=== PATIENT | female | born 1945 | race Caucasian/White ===

== ENCOUNTER 2020-05-10 16:52 | Inpatient (IN) | payer MEDICARE, OTHER ==
[~2020-05-10] VITALS: Ht 157.5 cm; Wt 75.9 kg
[2020-05-10 18:00] LABS: HEMOGLOBIN 7.5 gm/dl (12.3-15.3); RED BLOOD COUNT 2.51 M/UL (4.00-5.10); WHITE BLOOD COUNT 9.1 K/UL (4.5-11.0)
[2020-05-10] MEDS ORDERED: HYDRALAZINE HCL50 MG PO (22:45)
[2020-05-10] MEDS ORDERED: COZAAR 50MG TAB50 MG PO (22:46)
[2020-05-10] MEDS ORDERED: XARELTO20 MG PO (22:46)
[2020-05-10] MEDS ORDERED: LEVOTHYROXINE50 MC1 PO (22:49)
[2020-05-10] MEDS ORDERED: CLARITIN10 M2 PO (22:49)
[2020-05-10] MEDS ORDERED: SINGULAIR10 MG PO (22:49)
[2020-05-10] MEDS ORDERED: DULERA 100 MCG8.8 GM INH (22:50)
[2020-05-10] MEDS ORDERED: VENTOLIN HFA 66.7 GM INH (22:50)
[2020-05-10] MEDS ORDERED: OSTEO BI-FLEX1 EAC1 PO (22:51)
[2020-05-10] MEDS ORDERED: TYLENOL 500 MG500 MG PO (22:52)
[2020-05-10] MEDS ORDERED: VITAMIN C1000 MG PO (22:53)
[2020-05-10] MEDS ORDERED: VITAMIN D350 MCG PO (22:55)
[2020-05-10] MEDS ORDERED: BIOTIN PO (22:55)
[2020-05-10] MEDS ORDERED: ZINC50 M2 PO (22:56)
[2020-05-10] MEDS ORDERED: VITAMIN B-121000 MCG PO (22:56)
[2020-05-10] MEDS ORDERED: WAL-SOM50 MG PO (22:57)
[2020-05-11 15:03] LABS: HEMOGLOBIN 6.5 gm/dl (12.3-15.3); RED BLOOD COUNT 2.22 M/UL (4.00-5.10)
[2020-05-11] MEDS ORDERED: NIGHTTIME SLEEP25 M1 PO (20:46)
[2020-05-12 06:30] LABS: WHITE BLOOD COUNT 7.2 K/UL (4.5-11.0)
[2020-05-12 06:41] LABS: HEMOGLOBIN 8.9 gm/dl (12.3-15.3); RED BLOOD COUNT 2.97 M/UL (4.00-5.10)
[2020-05-13 04:02] LABS: HEMOGLOBIN 7.7 gm/dl (12.3-15.3)
[2020-05-13 04:03] LABS: RED BLOOD COUNT 2.56 M/UL (4.00-5.10); WHITE BLOOD COUNT 10.2 K/UL (4.5-11.0)
[2020-05-13 07:11] LABS: HBSAG SCREEN Negative (Negative); HCV AB 0.1 (0.0-0.9)
[2020-05-13 08:14] LABS: ANTISTREPTOLYSIN O AB <20.0 IU/mL (0.0-200.0); COMPLEMENT C3, SERUM 99 mg/dL (82-167); COMPLEMENT C4, SERUM 13 mg/dL (12-38)
[2020-05-13 10:14] LABS: CREATININE, URINE 35.5 mg/dL (Not Estab.)
[2020-05-13 10:14] LABS: CREATININE, URINE 77.9 mg/dL (Not Estab.)
[2020-05-13 12:01] LABS: HEMOGLOBIN 7.7 gm/dl (12.3-15.3)
[2020-05-13 12:14] LABS: ANTI-DSDNA ANTIBODIES 15 IU/mL (0-9)
[2020-05-13 16:12] LABS: ALBUMIN 2.7 g/dL (2.9-4.4); ALPHA-1-GLOBULIN 0.3 g/dL (0.0-0.4); ALPHA-2-GLOBULIN 0.9 g/dL (0.4-1.0); BETA GLOBULIN 0.9 g/dL (0.7-1.3); GAMMA GLOBULIN 0.9 g/dL (0.4-1.8); GLOBULIN, TOTAL 2.9 g/dL (2.2-3.9); IMMUNOGLOBULIN A, QN, SERUM 152 mg/dL (64-422); IMMUNOGLOBULIN G, QN, SERUM 955 mg/dL (586-1602); IMMUNOGLOBULIN M, QN, SERUM 160 mg/dL (26-217); M-SPIKE Not Observed g/dL (Not Observed); PROTEIN, TOTAL, SERUM 5.6 g/dL (6.0-8.5)
[2020-05-14 05:46] LABS: HEMOGLOBIN 8.2 gm/dl (12.3-15.3); RED BLOOD COUNT 2.72 M/UL (4.00-5.10)
[2020-05-14 05:48] LABS: WHITE BLOOD COUNT 14.9 K/UL (4.5-11.0)
[2020-05-15 04:48] LABS: HEMOGLOBIN 7.2 gm/dl (12.3-15.3)
[2020-05-15 04:55] LABS: RED BLOOD COUNT 2.37 M/UL (4.00-5.10); WHITE BLOOD COUNT 10.9 K/UL (4.5-11.0)
[2020-05-15 16:05] LABS: HEMOGLOBIN 8.2 gm/dl (12.3-15.3)
[2020-05-16 03:02] LABS: HEMOGLOBIN 7.7 gm/dl (12.3-15.3); RED BLOOD COUNT 2.55 M/UL (4.00-5.10); WHITE BLOOD COUNT 10.5 K/UL (4.5-11.0)
[2020-05-16 10:10] LABS: ANTIGLOMERULAR BM AB 4 units (0-20)
[2020-05-16 16:11] LABS: ANTIPROTEINASE 3 (PR-3) ABS 4.2 U/mL (0.0-3.5); ATYPICAL PANCA <1:20 titer (Neg:<1:20); CYTOPLASMIC (C-ANCA) >1:640 titer (Neg:<1:20); PERINUCLEAR (P-ANCA) >1:640 titer (Neg:<1:20)
[2020-05-17 05:04] LABS: HEMOGLOBIN 7.4 gm/dl (12.3-15.3); RED BLOOD COUNT 2.44 M/UL (4.00-5.10); WHITE BLOOD COUNT 10.4 K/UL (4.5-11.0)
[2020-05-17 13:15] LABS: ANTIHISTONE ANTIBODIES 6.7 Units (0.0-0.9)
[2020-05-18 04:27] LABS: HEMOGLOBIN 8.1 gm/dl (12.3-15.3); RED BLOOD COUNT 2.68 M/UL (4.00-5.10); WHITE BLOOD COUNT 11.4 K/UL (4.5-11.0)
[2020-05-18] MEDS ORDERED: SODIUM BICARBO650 M1 PO (16:20)
[2020-05-18] MEDS ORDERED: PROTONIX 40 MG40 M1 PO (16:20)
[2020-05-19 03:49] LABS: HEMOGLOBIN 7.4 gm/dl (12.3-15.3); RED BLOOD COUNT 2.47 M/UL (4.00-5.10); WHITE BLOOD COUNT 9.5 K/UL (4.5-11.0)
[2020-05-20 04:13] LABS: HEMOGLOBIN 7.8 gm/dl (12.3-15.3); RED BLOOD COUNT 2.58 M/UL (4.00-5.10)
[2020-05-20 10:13] LABS: HBSAG SCREEN Negative (Negative); HEP A AB, IGM Negative (Negative); HEP B CORE AB, IGM Negative (Negative); HEP C VIRUS AB 0.1 (0.0-0.9)
--- NOTE | 2020-05-20 22:45 | NUR ---
05/20/202137: CALLED PHARMACY AT THE REQUEST OF TO ASK THEM ABOUT A MEDICATION (RETUXIMAB) HE WANTED FOR THE PATIENT. PHARMACY STATED THAT THE MEDICATION HAD A RESTRICTION IN PLACE AND WAS ONLY ABLE TO BE GIVEN IN AN OUTPATIENT SETTING.
[2020-05-21 03:14] LABS: HEMOGLOBIN 7.5 gm/dl (12.3-15.3); RED BLOOD COUNT 2.49 M/UL (4.00-5.10); WHITE BLOOD COUNT 12.4 K/UL (4.5-11.0)
[2020-05-22 05:36] LABS: WHITE BLOOD COUNT 12.3 K/UL (4.5-11.0)
[2020-05-22 05:45] LABS: RED BLOOD COUNT 2.24 M/UL (4.00-5.10)
[2020-05-22 05:46] LABS: HEMOGLOBIN 6.7 gm/dl (12.3-15.3)
[2020-05-23 06:22] LABS: HEMOGLOBIN 8.5 gm/dl (12.3-15.3); WHITE BLOOD COUNT 14.9 K/UL (4.5-11.0)
[2020-05-23 06:23] LABS: RED BLOOD COUNT 2.85 M/UL (4.00-5.10)
[2020-05-23] MEDS ORDERED: ELIQUIS5 M1 PO (16:55)
== END 2020-05-23 17:55 | disposition home health service (06) | DRG 674 ==
LOC: ER1 16:52 → M/S 20:23 → CDU 20:23 → M/S 21:27
PROVIDERS: Internal Medicine; Internal Medicine Nephrology; Nurse Practitioner; Surgery; ADMIT Internal Medicine
PROC: 30233N1 Transfusion of Nonautologous Red Blood Cells into Peripheral Vein, Percutaneous Approach (ICD-10-PCS; 2020-05-11)
PROC: 0TB03ZX Excision of Right Kidney, Percutaneous Approach, Diagnostic (ICD-10-PCS; 2020-05-16)
PROC: 05HM33Z Insertion of Infusion Device into Right Internal Jugular Vein, Percutaneous Approach (ICD-10-PCS; 2020-05-19)
PROC: B543ZZA Ultrasonography of Right Jugular Veins, Guidance (ICD-10-PCS; 2020-05-19)
PROC: 5A1D70Z Performance of Urinary Filtration, Intermittent, Less than 6 Hours Per Day (ICD-10-PCS; 2020-05-19)
PROC: 0JH63XZ Insertion of Tunneled Vascular Access Device into Chest Subcutaneous Tissue and Fascia, Percutaneous Approach (ICD-10-PCS; principal; 2020-05-19 08:43)
PROC: 5A1D70Z Performance of Urinary Filtration, Intermittent, Less than 6 Hours Per Day (ICD-10-PCS; 2020-05-20)
PROC: 30233N1 Transfusion of Nonautologous Red Blood Cells into Peripheral Vein, Percutaneous Approach (ICD-10-PCS; 2020-05-22)
DX: N17.0 Acute kidney failure with tubular necrosis (principal); I12.0 Hypertensive chronic kidney disease with stage 5 chronic kidney disease or end stage renal disease; E87.2 Acidosis; I48.20 Chronic atrial fibrillation, unspecified; E87.1 Hypo-osmolality and hyponatremia; Z20.822 Contact with and (suspected) exposure to COVID-19; N18.6 End stage renal disease; I77.6 Arteritis, unspecified; D64.9 Anemia, unspecified; D72.829 Elevated white blood cell count, unspecified; E87.6 Hypokalemia; R04.0 Epistaxis; K59.00 Constipation, unspecified; F41.9 Anxiety disorder, unspecified; J45.909 Unspecified asthma, uncomplicated; E03.9 Hypothyroidism, unspecified; M06.9 Rheumatoid arthritis, unspecified; Z91.040 Latex allergy status; Z79.890 Hormone replacement therapy; Z79.01 Long term (current) use of anticoagulants; Z99.2 Dependence on renal dialysis; Z79.899 Other long term (current) drug therapy; Z88.8 Allergy status to other drugs, medicaments and biological substances; Z98.51 Tubal ligation status
CPT/HCPCS: 36415; 36430; 70360; 71045; 77001; 77012; 80053; 80061; 80074; 81001; 82043; 82436; 82570; 82784; 82803; 83010; 83520; 83540; 83550; 83615; 83735; 83883; 84133; 84155; 84156; 84165; 84300; 84439; 84443; 84550; 85007; 85014; 85018; 85025; 85027; 85610; 85652; 85730; 86038; 86060; 86140; 86160; 86200; 86225; 86256; 86334; 86431; 86803; 86850; 86900; 86901; 86920; 87086; 87340; 88305; 88313; 88346; 88348; 90935; 90937; 93005; 94640; 94760; 99285; C1750; C1752; C1769; C9113; J0360; J0690; J1642; J1940; J2405; J2704; J2930; J2997; J3010; J7030; J7040; J7050; J7070; J7120; P9016; U0002

== ENCOUNTER 2020-05-25 12:09 | Emergency (ER) | payer MEDICARE, OTHER ==
[~2020-05-25] VITALS: Ht 157.5 cm; Wt 74.4 kg
[~2020-05-25 12:09] MED LIST: BIOTIN PO; CLARITIN10 M2 PO; COZAAR 50MG TAB50 MG PO; DULERA 100 MCG8.8 GM INH; ELIQUIS5 M1 PO; HYDRALAZINE HCL50 MG PO; LEVOTHYROXINE50 MC1 PO; NIGHTTIME SLEEP25 M1 PO; OSTEO BI-FLEX1 EAC1 PO; PROTONIX 40 MG40 M1 PO; SINGULAIR10 MG PO; SODIUM BICARBO650 M1 PO; TYLENOL 500 MG500 MG PO; VENTOLIN HFA 66.7 GM INH; VITAMIN B-121000 MCG PO; VITAMIN C1000 MG PO; VITAMIN D350 MCG PO; WAL-SOM50 MG PO; XARELTO20 MG PO; ZINC50 M2 PO
[2020-05-25 12:45] LABS: HEMOGLOBIN 8.4 gm/dl (12.3-15.3); RED BLOOD COUNT 2.79 M/UL (4.00-5.10)
[2020-05-25 12:59] LABS: WHITE BLOOD COUNT 34.9 K/UL (4.5-11.0)
[2020-05-25 13:07] LABS: BUN/CREATININE RATIO 9 (0-10)
== END 2020-05-26 05:00 | disposition short-term general hospital (02) ==
LOC: ER1 12:09 → CDU 14:30 → ER1 14:30
PROVIDERS: Family Medicine
DX: J18.9 Pneumonia, unspecified organism (principal); J96.01 Acute respiratory failure with hypoxia; M31.0 Hypersensitivity angiitis; R04.89 Hemorrhage from other sites in respiratory passages; I13.2 Hypertensive heart and chronic kidney disease with heart failure and with stage 5 chronic kidney disease, or end stage renal disease; N18.6 End stage renal disease; I50.21 Acute systolic (congestive) heart failure; D64.9 Anemia, unspecified; F41.9 Anxiety disorder, unspecified; D72.829 Elevated white blood cell count, unspecified; E87.2 Acidosis; D69.6 Thrombocytopenia, unspecified; J44.9 Chronic obstructive pulmonary disease, unspecified; I48.91 Unspecified atrial fibrillation; E03.9 Hypothyroidism, unspecified; Z88.8 Allergy status to other drugs, medicaments and biological substances; Z79.01 Long term (current) use of anticoagulants; Z99.2 Dependence on renal dialysis; Z79.899 Other long term (current) drug therapy; Z91.040 Latex allergy status; Z20.822 Contact with and (suspected) exposure to COVID-19
CPT/HCPCS: 31500; 36600; 71045; 80053; 82550; 82553; 82803; 83605; 83874; 83880; 84484; 85025; 87040; 93005; 94002; 94660; 94760; 96365; 96366; 96375; 96376; 99285; J0330; J2060; J2250; J2543; J2930; J3370; J7070; U0002

== ENCOUNTER 2020-08-05 18:08 | Observation (INO) | payer MEDICARE, OTHER ==
[~2020-08-05] VITALS: Ht 157.5 cm; Wt 62.6 kg
[2020-08-05 20:01] LABS: HEMOGLOBIN 6.9 gm/dl (12.3-15.3)
[2020-08-06 10:02] LABS: HEMOGLOBIN 7.9 gm/dl (12.3-15.3); WHITE BLOOD COUNT 8.7 K/UL (4.5-11.0)
[2020-08-06 10:04] LABS: RED BLOOD COUNT 2.39 M/UL (4.00-5.10)
[2020-08-06 14:09] LABS: HEMOGLOBIN 9.1 gm/dl (12.3-15.3)
[2020-08-07 04:50] LABS: HEMOGLOBIN 8.2 gm/dl (12.3-15.3); RED BLOOD COUNT 2.45 M/UL (4.00-5.10); WHITE BLOOD COUNT 9.9 K/UL (4.5-11.0)
--- NOTE | 2020-08-08 02:42 | NUR ---
PATIENT COMPLAINING OF SHORTNESS OF BREATH AND NERVOUSNESS. O2 SATURATION 96%. PATIENT REQUESTED INHALER FROM RESPIRATORY. INHALER WAS GIVEN BY RESPIRATORY. MD WAS CALLED, ORDERED VISTARIL 25MG ONE TIME DOSE. WILL CONTIUNE TO GOLDY.
[2020-08-08] MEDS ORDERED: COREG25 MG PO (07:16)
[2020-08-08] MEDS ORDERED: AMLODIPINE BESYL5 MG PO (07:16)
[2020-08-08 08:23] LABS: HEMOGLOBIN 7.7 gm/dl (12.3-15.3); RED BLOOD COUNT 2.31 M/UL (4.00-5.10); WHITE BLOOD COUNT 11.2 K/UL (4.5-11.0)
[2020-08-08] MEDS ORDERED: PROCRIT3000 UNIT/ SQ (20:07)
[2020-08-08] MEDS ORDERED: VISTARIL 25 MG25 MG PO (20:15)
[2020-08-08] MEDS ORDERED: PREDNISONE 5 MG5 MG PO (20:18)
[2020-08-08] MEDS ORDERED: MELATONIN 3 MG1 EAC1 PO (20:19)
[2020-08-08] MEDS ORDERED: SEROQUEL25 MG PO (20:20)
[2020-08-09 12:10] LABS: HBSAG SCREEN Negative (Negative); HEP A AB, IGM Negative (Negative); HEP B CORE AB, IGM Negative (Negative); HEP C VIRUS AB <0.1 (0.0-0.9)
[2020-08-10 04:09] LABS: HEMOGLOBIN 7.7 gm/dl (12.3-15.3); RED BLOOD COUNT 2.3 M/UL (4.00-5.10); WHITE BLOOD COUNT 8.7 K/UL (4.5-11.0)
[2020-08-10] MEDS ORDERED: ELIQUIS 5 MG TAB5 MG PO (16:01)
[2020-08-10] MEDS ORDERED: PREDNISONE 10 M10 MG PO (16:01)
[2020-08-10] MEDS ORDERED: CALCIUM ACETAT667 M1 PO (16:01)
[2020-08-11 07:43] LABS: HEMOGLOBIN 8.6 gm/dl (12.3-15.3)
== END 2020-08-12 15:19 | disposition home or self-care (01) ==
LOC: ER1 18:08 → MED SURG 4 23:39 → CDU 23:39 → MED SURG 4 08-06 03:35
PROVIDERS: Internal Medicine; Internal Medicine Nephrology; Physician Assistant Medical; ADMIT Internal Medicine
DX: I13.11 Hypertensive heart and chronic kidney disease without heart failure, with stage 5 chronic kidney disease, or end stage renal disease (principal); E11.22 Type 2 diabetes mellitus with diabetic chronic kidney disease; N18.6 End stage renal disease; I48.0 Paroxysmal atrial fibrillation; E03.9 Hypothyroidism, unspecified; D53.9 Nutritional anemia, unspecified; M31.30 Wegener's granulomatosis without renal involvement; E87.2 Acidosis; J44.9 Chronic obstructive pulmonary disease, unspecified; M31.0 Hypersensitivity angiitis; R53.2 Functional quadriplegia; N25.81 Secondary hyperparathyroidism of renal origin; Z99.2 Dependence on renal dialysis; D72.821 Monocytosis (symptomatic); Z91.040 Latex allergy status; Z88.8 Allergy status to other drugs, medicaments and biological substances; Z79.01 Long term (current) use of anticoagulants; Z79.899 Other long term (current) drug therapy; Z20.822 Contact with and (suspected) exposure to COVID-19
CPT/HCPCS: 36415; 36430; 72131; 72192; 80048; 80053; 80074; 82248; 82272; 82550; 82553; 82607; 82746; 83010; 83540; 83550; 83615; 83735; 84100; 84439; 84443; 84484; 85014; 85018; 85025; 85027; 85045; 86850; 86880; 86900; 86901; 86920; 90935; 90937; 93005; 94640; 94664; 94760; 97116-GP-CQ; 97161; 97165; 97530; 97530-GP-CQ; 99285; G0257; G0378; J0885; J7030; P9016; Q0177; Q5106; U0002

== ENCOUNTER 2020-11-12 10:47 | Emergency (ER) | payer MEDICARE, OTHER ==
[~2020-11-12 10:47] MED LIST changes: +AMLODIPINE BESYL5 MG PO; +CALCIUM ACETAT667 M1 PO; +COREG25 MG PO; +ELIQUIS 5 MG TAB5 MG PO; +MELATONIN 3 MG1 EAC1 PO; +PREDNISONE 10 M10 MG PO; +PREDNISONE 5 MG5 MG PO; +PROCRIT3000 UNIT/ SQ; +SEROQUEL25 MG PO; +VISTARIL 25 MG25 MG PO
== END 2020-11-12 14:16 | disposition home or self-care (01) ==
LOC: ER1 10:47
DX: S41.111A Laceration without foreign body of right upper arm, initial encounter (principal); M25.561 Pain in right knee; M79.641 Pain in right hand; I10 Essential (primary) hypertension; Z91.040 Latex allergy status; R51.9 Headache, unspecified; W19.XXXA Unspecified fall, initial encounter; Y92.009 Unspecified place in unspecified non-institutional (private) residence as the place of occurrence of the external cause
CPT/HCPCS: 70450; 73130; 73564; 99284

== ENCOUNTER 2020-11-14 07:25 | Emergency (ER) | payer MEDICARE, OTHER | END 2020-11-14 09:05 | disposition home or self-care (01) | LOC: ER1 07:25 | DX: S01.01XA Laceration without foreign body of scalp, initial encounter (principal); S00.11XA Contusion of right eyelid and periocular area, initial encounter; N18.6 End stage renal disease; I48.91 Unspecified atrial fibrillation; I12.0 Hypertensive chronic kidney disease with stage 5 chronic kidney disease or end stage renal disease; Z91.040 Latex allergy status; W19.XXXA Unspecified fall, initial encounter | CPT/HCPCS: 70450; 99283 ==

== ENCOUNTER → 2020-12-16 | Outpatient (CLI) | payer MEDICARE, OTHER ==
[~2020-12-16] VITALS: Ht 157.5 cm; Wt 78.9 kg
== END ==
LOC: OPSV 09:00
DX: M31.7 Microscopic polyangiitis (principal); M31.31 Wegener's granulomatosis with renal involvement
CPT/HCPCS: 96413; 96415; J1720; J7030; J9312

== ENCOUNTER → 2021-06-19 | Outpatient (CLI) | payer MEDICARE, OTHER ==
[~2021-06-19] VITALS: Ht 157.5 cm; Wt 78.9 kg
== END ==
LOC: OPSV 08:00
DX: M31.7 Microscopic polyangiitis (principal)
CPT/HCPCS: 96413; 96415; J1720; J7030; J9312

== ENCOUNTER → 2021-12-21 | Outpatient (CLI) | payer MEDICARE, BC, OTHER | LOC: KOH-I 08:12 | DX: R42 Dizziness and giddiness (principal); H93.19 Tinnitus, unspecified ear | CPT/HCPCS: 70551 ==

== ENCOUNTER → 2022-01-01 | Outpatient (CLI) | payer MEDICARE, OTHER ==
[~2022-01-01] VITALS: Ht 157.5 cm; Wt 78.9 kg
== END ==
LOC: OPSV 07:57
DX: M31.7 Microscopic polyangiitis (principal); M31.31 Wegener's granulomatosis with renal involvement
CPT/HCPCS: 96413; 96415; J7030; J9312